=== PATIENT | male | born 1975 | race Caucasian/White ===

== ENCOUNTER 2017-01-31 01:21 | Emergency (ER) | payer SELFPAY ==
--- NOTE | 2017-01-31 01:48 | PDOC ---
History of Present Illness <Alison Wills - Last Filed: 01/31/17 02:19> - General History Source: Patient Exam Limitations: No Limitations - History of Present Illness Initial Comments: 01/31/17 02:22 Patient is a 41 year old male with no significant past medical history who presents to the ED with complaints of left hand pain that began 3 months ago. Patient reports intermittent left hand pain beginning 3 months ago that has increased in intensity over time. He reports lump on his left wrist secondary to left hand pain. Patient states the left hand pain is increased when the lump begins to swell. Patient states he is right handed and works as a environmental engineering technician. Denies chest pain, SOB. Denies fever, chills. Denies nausea, vomiting. Denies any other symptoms. Allergies: None Social history: No smoking. No alcohol. No illicit drugs. Surgical history: None. PMD: Not On Staff. <Arvind Mitchell - Last Filed: 01/31/17 02:22> - General Chief Complaint: Pain, Acute Stated Complaint: WRIST INJURY Time Seen by Provider: 01/31/17 01:47 Past History - Past Medical History Other medical history: Denies - Immunization History Immunization Up to Date: No - Suicide/Smoking/Psychosocial Hx Smoking History: Never smoked Have you smoked in the past 12 months: No Information on smoking cessation initiated: No Hx Alcohol Use: No Drug/Substance Use Hx: No Substance Use Type: Alcohol <Alison Wills - Last Filed: 01/31/17 02:19> <Arvind Mitchell - Last Filed: 01/31/17 02:22> - Past Medical History Allergies/Adverse Reactions: Allergies Allergy/AdvReac Type Severity Reaction Status Date / Time No Known Allergies Allergy Verified 01/31/17 01:42 Home Medications: Ambulatory Orders NK [No Known Home Medication] 01/31/17 Review of Systems - Review of Systems Able to Perform ROS?: Yes Comments:: 01/31/17 02:21 GENERAL/CONSTITUTIONAL: No fever or chills. No weakness. MUSCULOSKELETAL: +Left hand pain No joint or muscle swelling. No neck or back pain. SKIN: No rash All Other Systems: Reviewed and Negative <Arvind Mitchell - Last Filed: 01/31/17 02:22> *Physical Exam - Vital Signs Last Vital Signs Temp Pulse Resp BP Pulse Ox 98.8 F 68 18 135/79 100 01/31/17 01:40 01/31/17 01:40 01/31/17 01:40 01/31/17 01:40 01/31/17 01:40 <Alison Wills - Last Filed: 01/31/17 02:19> - Vital Signs Last Vital Signs Temp Pulse Resp BP Pulse Ox 98.8 F 68 18 135/79 100 01/31/17 01:40 01/31/17 01:40 01/31/17 01:40 01/31/17 01:40 01/31/17 01:40 - Physical Exam Comments: 01/31/17 02:21 GENERAL: Awake, alert, and fully oriented, in no acute distress HEAD: No signs of trauma EYES: PERRLA, EOMI, sclera anicteric, conjunctiva clear ENT: Auricles normal inspection, hearing grossly normal, nares patent, oropharynx clear without exudates. Moist mucosa NECK: Normal ROM, supple, no lymphadenopathy, JVD, or masses LUNGS: Breath sounds equal, clear to auscultation bilaterally. No wheezes, and no crackles HEART: Regular rate and rhythm, normal S1 and S2, no murmurs, rubs or gallops ABDOMEN: Soft, nontender, normoactive bowel sounds. No guarding, no rebound. No masses EXTREMITIES: +Small cyst to posterior left wrist, non tender, non erythematous, non indurated Normal range of motion, no edema. No clubbing or cyanosis. No cords, erythema, or tenderness NEUROLOGICAL: Cranial nerves II through XII grossly intact. Normal speech, normal gait SKIN: Warm, Dry, normal turgor, no rashes or lesions noted. <Arvind Mitchell - Last Filed: 01/31/17 02:22> *DC/Admit/Observation/Transfer - Discharge Dispostion Admit: No <Alison Wills - Last Filed: 01/31/17 02:19> - Attestations Scribe Attestion: 01/31/17 02:22 Documentation prepared by Arivnd Mitchell, acting as medical office technician for Alison Wills MD. <Arvind Mitchell - Last Filed: 01/31/17 02:22> Diagnosis at time of Disposition: Ganglion cyst - Discharge Dispostion Disposition: HOME Condition at time of disposition: Stable - Referrals - Patient Instructions Printed Discharge Instructions: Ganglion Cyst Additional Instructions: Si presenta emily solicitud para Medicaid, puede jeremy al Dr. Brown en el [facility]. El ve a los pacientes el willy de 9 a 12 y el jueves de 12 a 4. Torsten crooks para [facility] jeniffer. [facility], torsten crooks [phone] para hacer emily jeniffer. [facility] gianna tiene un sistema de clnica con emily oficina de [employer]. Torsten crooks para hacer emily jeniffer. Print Language: IRAQI
[2017-01-31 02:29] VITALS: BP 135/79; PULSE 68; TEMP 98.8; BMI 24.1
== END 2017-01-31 02:53 | disposition home or self-care (01) ==
LOC: JER 01:21
DX: M67.432 Ganglion, left wrist (principal)
CPT/HCPCS: 99281-25